=== PATIENT | male | born 1975 | race Caucasian/White ===

== ENCOUNTER 2023-06-14 14:50 | Emergency (ER) | payer BC, MEDICAID, SELFPAY ==
[2023-06-14 14:54] VITALS: BP 144/102; PULSE 58; RESP 16; TEMP 36.6; O2SAT 97; BMI 29.8
--- NOTE | 2023-06-14 14:59 | CT_ITS ---
WS: [id number] CT HEAD NONCONTRAST HISTORY: HEAD TRAUMA TECHNIQUE: Contiguous axial imaging performed through the brain in 2.5 mm imaging. Bone and soft tiss ue windows. Sagittal and coronal reformats reviewed. All CT scans at [facility] use at least one of these dose optimization techniques: automated exposure control; mA and/or kV adjustment per pa tient size (includes targeted exams where dose is matched to clinical indication); or iterative recon struction. DLP: 1062.18 mGy COMPARISON: None available. Seen only on a single image is increased density within the anterior middle cranial fossa. This is se en only on the axial imaging. Suspicious but indeterminate for a very small subdural hemorrhages. The remaining brain is negative for acute blood. No atrophy or prior infarcts or herniation. Ventricles: Normal size with no hydrocephalus. Paranasal sinuses: As visualized are clear. Mastoid air cells: Well pneumatized. Calvarium and scalp: No skull fracture. Moderate size scalp hematoma centered over the LEFT frontal b one. Hematoma extends posteriorly over the LEFT temporal bone. IMPRESSION: 1. Indeterminant but suspicious for a very tiny subdural hemorrhages in the anterior middle cranial f carmen. Area suspicious for subdural blood is seen only on one axial image. No additional areas of hemo rrhage or edema. 2. Moderate size scalp hematoma centered over the LEFT frontal temporal bone.
[2023-06-14 15:16] LABS: Basophils % 0.3 %; Eosinophils % 0.3 %; Hematocrit 43.3 % (37-53); Lymphocytes # 1.2 10^3/uL (0.8-4.8); Lymphocytes % 11.5 %; Mean Corpuscular HGB Conc 33.7 g/dL (30-55); Mean Corpuscular Volume 88.9 fl (82-101); Monocytes # 0.4 10^3/uL (0.2-0.9); Neutrophils # 8.49 10^3/uL (1.8-7.7); Neutrophils % 83.5 %; Nucleated Red Blood Cells % 0 %; Platelet Count 234 10^3/cmm (157-399); Red Blood Count 4.87 10^6/uL (3.85-5.65); Red Cell Distribution Width 12.3 % (12.1-15.1); White Blood Count 10.17 10^3/uL (3.29-11.43)
--- NOTE | 2023-06-14 15:26 | ED_ITS ---
HPI - Wound/Laceration General: Chief Complaint: Wound/Laceration Stated Complaint: cut on head Time Seen by Provider: 06/14/23 15:00 Source: patient Mode of arrival: ambulatory History of Present Illness: 48-year-old male was working at home and hit his head on a piece of machinery. No loss of consciousness. Patient is awake and alert he has a very large laceration on his scalp approximately 20 cm in length with active bleeding from the anterior apex of the lesion. Patient is not on any anticoagulants no other injuries Onset (ago): minute(s) Location: scalp Place: work Context: accidental Associated symptoms: Reports pain; Denies chills or fever(s) Treatments prior to arrival: bandage Review of Systems Const: Denies: fever(s) or chills Card: Denies: chest pain Resp: Denies: dyspnea GI: Denies: abdominal pain : Denies: dysuria, urinary frequency or urinary urgency Musc: Denies: neck pain or back pain Skin/Breast: Denies: rash Physical Exam Const: GENERAL APPEARANCE: cooperative and comfortable ORIENTATION/CONSCIOUSNESS: Yes awake, Yes oriented to person, Yes oriented to place and Yes oriented to time HENMT: COMMON NORMALS: normocephalic and hearing grossly normal bilaterally HEAD & SCALP: normocephalic OTHER: 20 cm scalp laceration with active bleeding see below Resp: COMMON NORMALS: normal respiratory effort, No retractions, No use of accessory muscles and clear to auscultation bilaterally AUSCULTATION: clear to auscultation bilaterally Cardio: COMMON NORMALS: regular rate, regular rhythm and No murmurs present (Cardio) RATE: regular rate RHYTHM: regular rhythm Neuro: SENSORIUM/ORIENTATION: Yes oriented to person, Yes oriented to place and Yes oriented to time Skin: COMMON NORMALS: no rashes or lesions noted GENERAL SKIN EXAM: no rashes or lesions noted Procedures Laceration Laceration 1: Site: scalp Size (cm): 20 Description: linear and irregular Depth: simple, single layer Local Anesthetic: lidocaine 1% and with epi Amount of anesthesia used (mL): 3 Pre-repair: wound explored and irrigated extensively Skin layer closed with: nylon Size (cm): 4-0 Number of sutures: 6 Technique: simple, interrupted Subcutaneous layer closed with: vicryl Size: 3-0 Number of sutures: 2 Technique: running Procedural Sedation Indication: laceration repair ASA Class: I Time of Last PO Intake: 12:00 Preparation: equipment monitor phototypesetting applied, pulse oximeter, capnometry used, supplemental O2 applied, suction/airway equipment at bedside and IV secured Fentanyl: IV Fentanyl dose (mcg): 50 Ketamine dose (mg): 200 Patient Tolerated Procedure: well Complications: none Course Vital Signs: Vital signs: Vital Signs Temperature 97.8 F 06/14/23 16:24 Pulse Rate 65 06/14/23 17:09 Respiratory Rate 19 H 06/14/23 17:09 Blood Pressure 122/79 06/14/23 17:09 Pulse Oximetry 97 06/14/23 17:09 Oxygen Delivery Me thod Room Air 06/14/23 17:09 MDM - Wound/Laceration Medical Decision Making Initially on arrival there was active bleeding from the anterior apex of the laceration there is infiltrated 1% lidocaine with epinephrine and 2 large sutures of 3-0 Vicryl applied with good hemostasis. The remainder of the wound was approximated with tape and dressing applied CT completed wound then repaired in its fullness. See procedure note above Remainder the wound closed after procedural sedation. Timeout prior to onset of sedation for laceration repair. Proceeded with sedation and 200 mg of IV ketamine and 50 of IV fentanyl. Previously placed Vicryl sutures were still maintaining good hemostasis running sutures begun anteriorly did not then posteriorly was a second suture was started there converged approximately 6 5 to 6 cm from the posterior aspect of the wound and then were tied off and not buried. There is a few gaped areas of the wound and some that had small amounts of bleeding these were closed with 4-0 nylon with good approximation cosmesis and hemostasis. Patient recovered from procedural sedation without complications. CT shows a very small possible subdural hematoma. We do not have available neurosurgery. I will recommend that the patient be evaluated no surgery or trauma wound was closed as above I talked to Dr. Roge Meade, ER doctor at [facility] he will accept patient on transfer will transfer by ambulance. Differential Diagnosis Likely laceration Medical Records I reviewed the patient's medical records. Lab Data 06/14/23 15:09 Laboratory Results WBC 10.17 10^3/uL (3.29-11.43) 06/14/23 15:09 RBC 4.87 10^6/uL (3.85-5.65) 06/14/23 15:09 Hgb 14.60 g/dL (11.27-16.99) 06/14/23 15:09 Hct 43.3 % (37-53) 06/14/23 15:09 MCV 88.9 fl (82-101) 06/14/23 15:09 MCH 30.0 pg (27-33) 06/14/23 15:09 MCHC 33.7 g/dL (30-55) 06/14/23 15:09 RDW 12.3 % (12.1-15.1) 06/14/23 15:09 Plt Count 234 10^3/cmm (157-399) 06/14/23 15:09 MPV 9.0 fL (7.4-10.4) 06/14/23 15:09 Neut % (Auto) 83.5 % 06/14/23 15:09 Lymph % (Auto) 11.5 % 06/14/23 15:09 Logan % (Auto) 4.0 % 06/14/23 15:09 Eos % (Auto) 0.3 % 06/14/23 15:09 Baso % (Auto) 0.3 % 06/14/23 15:09 Neut # (Auto) 8.49 10^3/uL (1.8-7.7) H 06/14/23 15:09 Lymph # (Auto) 1.2 10^3/uL (0.8-4.8) 06/14/23 15:09 Logan # (Auto) 0.4 10^3/uL (0.2-0.9) 06/14/23 15:09 Eos # (Auto) 0.0 10^3/uL (0.0-0.8) 06/14/23 15:09 Baso # (Auto) 0.0 10^3/uL (0.0-0.1) 06/14/23 15:09 Nucleated RBC % (auto) 0 % 06/14/23 15:09 Nucleated RBCs # 0.0 /100WBC 06/14/23 15:09 All radiology interpretation(s) finalized by discharge Discharge Plan Discharge Patient Disposition: Transfer to ED Clinical Impression: Acute subdural hematoma, Laceration of scalp, Closed head injury Condition: Stable Prescriptions: No Action No Known Home Medications Patient Instructions: Opioid Safety, Pain Management Coding Level of Care Code ED Occupational Health Rn for Zabrina Carlos
[2023-06-14 15:29] VITALS: BP 144/102; PULSE 58; RESP 18; O2SAT 98
[2023-06-14] MEDS: tetanus-dipt-pertussis 0.5 mL SDV IM (15:41)
[2023-06-14] MEDS: ceFAZolin 1,000 mg SDV 1000 MG IVP (15:41)
[2023-06-14 15:45] VITALS: BP 114/74; PULSE 59; RESP 18; O2SAT 98
[2023-06-14] MEDS: fentaNYL 50 mcg/mL INJ 2mL IVP (16:22)
[2023-06-14 16:24] VITALS: BP 114/74; PULSE 52; RESP 18; TEMP 36.6; O2SAT 100
[2023-06-14 17:09] VITALS: BP 122/79; PULSE 65; RESP 19; O2SAT 97
[2023-06-14] MEDS: mupirocin oint 22 gm 1 APPLIC TOPICAL (17:26)
[2023-06-14 18:43] VITALS: BP 122/79; PULSE 56; RESP 18; O2SAT 97
== END 2023-06-14 19:45 ==
PROVIDERS: Emergency Provider Family Medicine
DX: S06.5XAA Traumatic subdural hemorrhage with loss of consciousness status unknown, initial encounter (principal); S01.01XA Laceration without foreign body of scalp, initial encounter; S09.8XXA Other specified injuries of head, initial encounter; W22.8XXA Striking against or struck by other objects, initial encounter; Z23 Encounter for immunization
CPT/HCPCS: 12035; 70450; 85025; 90471; 90715; 94799; 96365; 99152; 99285; J0690; J3010; J3490